=== PATIENT | male | born 1945 | race American Indian/Alaskan Native ===

== ENCOUNTER 2018-08-23 10:49 | Emergency (ER) | payer MEDICARE ==
[2018-08-23 11:08] VITALS: BP 163/89
--- NOTE | 2018-08-23 12:48 | Emergency Department Report ---
HPI - General Chief Complaint: Pain General Time Seen by Provider: 08/23/18 12:19 - HPI HPI: Room 25 The patient is a 73-year-old male presenting with a chief complaint of bilateral pain and swelling. Patient states for one week she's noticed induration and tenderness of both nipples as well as enlargement. Patient denies any history of fever, weight loss or headaches. Patient denies nausea/vomiting, shortness of breath or chest pain. The patient has a history of cirrhosis Location: [See above] Duration: One week Quality: Soreness Severity: Moderate Modifying factors: [see above] Context: [see above] Mode of transportation: [not driving] ED Past Medical Hx - Past Medical History Hx Hypertension: Yes Hx Diabetes: Yes Hx Liver Disease: Yes Additional medical history: HepC, enlarged thyroid gland, glaucoma - Surgical History Additional Surgical History: Urethra stricture - Family History Family history: no significant - Social History Smoking Status: Former Smoker (none 40 years) Substance Use Type: None (denies illicit drug use) - Medications Home Medications: Home Medications Medication Instructions Recorded Confirmed Last Taken Type traMADol [Ultram] 50 mg PO Q6HR PRN #14 tablet 08/23/18 Unknown Rx ED Review of Systems ROS: Stated complaint: HIP PAIN/SWOLLEN BREAST Other details as noted in HPI Constitutional: denies: fever Eyes: denies: eye pain ENT: denies: throat pain Respiratory: no symptoms reported Cardiovascular: denies: chest pain Endocrine: other (gynecomastia) Gastrointestinal: denies: abdominal pain Genitourinary: denies: dysuria Musculoskeletal: denies: back pain Skin: denies: lesions Neurological: denies: headache Physical Exam - Physical Exam Vital Signs: Vital Signs 08/23/18 11:01 Temperature 97.6 F Pulse Rate 58 L Respiratory 18 Rate Blood Pressure 163/89 O2 Sat by Pulse 98 Oximetry Physical Exam: GENERAL: The patient is well-developed well-nourished male lying on stretcher not appearing to be in acute distress. [] HEENT: Normocephalic. Atraumatic. Extraocular motions are intact. Patient has moist mucous membranes. NECK: Supple. Trachea midline CHEST/LUNGS: No rubbery mass palpated surrounding nipples bilaterally. There is no surrounding erythema or discharge. Clear to auscultation. There is no respiratory distress noted. HEART/CARDIOVASCULAR: Regular. There is no tachycardia. There is no gallop rub or murmur. ABDOMEN: Abdomen is soft, nontender. Patient has normal bowel sounds. There is no abdominal distention. SKIN: There is no rash. There is no diaphoresis. NEURO: The patient is awake, alert, and oriented. The patient is cooperative. The patient has normal speech MUSCULOSKELETAL: There is no evidence of acute injury. ED Course Vital Signs 08/23/18 11:01 Temperature 97.6 F Pulse Rate 58 L Respiratory 18 Rate Blood Pressure 163/89 O2 Sat by Pulse 98 Oximetry ED Medical Decision Making - Lab Data Result diagrams: 08/23/18 12:39 08/23/18 12:39 Laboratory Tests 08/23/18 08/23/18 08/23/18 12:39 12:39 12:39 WBC 3.9 L RBC 4.08 Hgb 13.8 Hct 41.5 MCV 102 H MCH 34 H MCHC 33 RDW 13.4 Plt Count 128 L Eos % (Auto) Kennel Worker Sodium 141 Potassium 4.3 Chloride 104.7 Carbon Dioxide 26 Anion Gap 15 BUN 15 Creatinine 1.1 Estimated GFR > 60 BUN/Creatinine Ratio 14 Glucose 157 H Calcium 9.2 Total Bilirubin 0.60 AST 21 ALT 12 Alkaline Phosphatase 80 Total Protein 7.4 Albumin 3.9 Albumin/Globulin Ratio 1.1 TSH 0.898 Free T4 1.16 HCG, Quant < 2 H - Differential Diagnosis gynecomastia, breast cancer Critical care attestation.: If time is entered above; I have spent that time in minutes in the direct care of this critically ill patient, excluding procedure time. ED Disposition Clinical Impression: Gynecomastia Disposition: - TO HOME OR SELFCARE Is pt being admited?: No Does the pt Need Aspirin: No Condition: Stable Additional Instructions: Return to the emergency department immediately should you develop worsening symptoms, fever, inability to tolerate food or liquid or any other concerns. Prescriptions: traMADol [Ultram] 50 mg PO Q6HR PRN #14 tablet PRN Reason: Pain Referrals: GABBY GANT JR, MD [Primary Care Provider] - 3-5 Days QUITA AQUINO MD [Staff Physician] - 3-5 Days (Dr. Aquino is a hangar attendant. Please follow up with him for further evaluation of your cirrhosis) Time of Disposition: 13:42
[2018-08-23 13:10] LABS: Hematocrit 41.5 % (35.5-45.6); Hemoglobin 13.8 gm/dl (11.8-15.2); Mean Corpuscular HGB Conc 33 % (32-34); Mean Corpuscular Hemoglobin 34 pg (28-32); Mean Corpuscular Volume 102 fl (84-94); Platelet Count 128 K/mm3 (140-440); Red Blood Count 4.08 M/mm3 (3.65-5.03); Red Cell Distribution Width 13.4 % (13.2-15.2)
[2018-08-23 13:13] LABS: Alanine Aminotransferase 12 units/L (7-56); Albumin 3.9 g/dL (3.9-5); BUN/Creatinine Ratio 14; Blood Urea Nitrogen 15 mg/dL (9-20); Calcium 9.2 mg/dL (8.4-10.2); Hemolysis Index 15
[2018-08-23 13:25] LABS: Free T4 (Free Thyroxine) 1.16 ng/dL (0.76-1.46); HCG,Quantitative < 2 mIU/mL (0-1)
[2018-08-23 13:56] LABS: Basophils % (Manual) 0 % (0.0-1.8); Total Cells Counted 100
[2018-08-23 13:57] LABS: Anisocytosis 1+; Giant Platelets Rare; Large Platelets Few; Macrocytosis 1+; Ovalocytes 1+; Platelet Estimate Appears Decreased
== END 2018-08-23 14:18 | disposition home or self-care (01) ==
LOC: ED 10:49
DX: N62 Hypertrophy of breast (principal); I10 Essential (primary) hypertension; E11.9 Type 2 diabetes mellitus without complications; Z86.19 Personal history of other infectious and parasitic diseases; Z87.891 Personal history of nicotine dependence
CPT/HCPCS: 36415; 80053; 82670; 84439; 84443; 84702; 85007; 85025; 99283

== ENCOUNTER 2018-11-23 07:13 | Day surgery (SDC) | payer MEDICARE, OTHER ==
[2018-11-23] MEDS ORDERED: NACL 0.9% 1000 ML 1,000 ML IV SCH (08:00)
[2018-11-23] MEDS ORDERED: DIPRIVAN 10 MG/ML IV ONE (09:46)
[2018-11-23] MEDS ORDERED: VERSED ONE (09:46)
[2018-11-23] MEDS ORDERED: WATER FOR IRRIG STERILE IR ONE (09:47)
--- NOTE | 2018-11-23 09:49 | Anesthesia Day of Surgery ---
Anesthesia Day of Surgery - Day of Surgery Patient Examined: Yes Patient H&P Reviewed: Yes Patient is NPO: Yes Beta Blockers: No
--- NOTE | 2018-11-23 09:52 | Anesthesia Consultation ---
Anesthesia Consult and Med Hx Date of service: 11/23/18 - Airway Anesthetic Teeth Evaluation: Poor ROM Head & Neck: Adequate Mental/Hyoid Distance: Adequate Mallampati Class: Class II Intubation Access Assessment: Probably Good - Pulmonary Exam CTA: Yes - Cardiac Exam Cardiac Exam: No Murmur - Pre-Operative Health Status ASA Pre-Surgery Classification: ASA3 Proposed Anesthetic Plan: MAC - Pulmonary Hx Smoking: No Hx Asthma: No Hx Respiratory Symptoms: No - Cardiovascular System Hx Hypertension: Yes - Endocrine Hx Cirrhosis: Yes Hx Liver Disease: Yes (hept c) Hx Insulin Dependent Diabetes: Yes - Hematic Hx Anemia: Yes
--- NOTE | 2018-11-23 10:39 | Procedure Note ---
Date of procedure: 11/23/18 Pre-op diagnosis: H/O Esophageal Varices/ Colon Polyp Screening Post-op diagnosis: other (Moderate, Desirae Esophagitis/ Grade 1 to 2 Esophageal Varices/ Submucosal Gastric Lesion/ Gastritis/ Normal, Colon Mucosa/ Minor,Internal Hemorrhoid) Procedure: EGD with Biopsy/ Colonoscopy Anesthesia: AMARA Surgeon: BURTON HERNANDEZ Estimated blood loss: minimal Pathology: list Specimen disposition: to lab Condition: stable Disposition: same day (Treat with Fluconazole and resume home medication. Follow up in 1 to 2 weeks ([phone]).)
--- NOTE | 2018-11-23 11:08 | Operative Report ---
ESOPHAGOGASTRODUODENOSCOPY WITH BIOPSY INDICATIONS FOR PROCEDURE: This is a 73-year-old -[place] gentleman with an underlying history of chronic hepatitis C with cirrhosis. He has been treated with Harvoni and is noted to be treated for hepatitis C that requires periodic ultrasound of the liver to check for any hepatoma. He has a history of esophageal varices. EGD was done to make sure that the esophageal varices have not worsened. DESCRIPTION OF PROCEDURE: Procedure was done after getting informed consent with MAC anesthesia. Instrument was passed through the hypopharynx into the esophagus, which showed moderate Desirae esophagitis. Biopsy was done from the esophagus to check for that. The patient also had grade 1-2 esophageal varices, which were noted. Photodocumentation was also noted. Within the stomach, there was a gastric lesion, possibly submucosal lesion noted. Biopsy was done. The patient may require an US or a CT scan of the abdomen and pelvis for further assessment as well as associated gastritis and patent pylorus. There is minimal bleeding from the biopsy sites. No complications associated with the procedure. ASSESSMENT: Moderate Desirae esophagitis, grade 1-2 esophageal varices, gastric lesion, possibly submucosal gastritis. PLAN: Plan is to treat the patient with fluconazole, have the patient follow up in the office in 1-2 weeks' time. The patient may require a CT scan of the abdomen and pelvis or an US to be done as an outpatient for further assessment of the gastric submucosal lesion. There were no complications associated with the procedure. No bleeding associated with the procedure. A colonoscopy will be done as part of colon polyp screening and the patient will be asked to follow up in office in 1-2 weeks' time. RN, Selma Bailey was in the room throughout the entirety of the procedure. JOB# [id number] DAVE/NAVID
[2018-11-23 11:09] VITALS: BP 131/75
--- NOTE | 2018-11-23 11:20 | Operative Report ---
PROCEDURE: Colonoscopy. INDICATIONS: A 73-year-old -[place] gentleman with an underlying history of chronic hepatitis C that has been treated with Harvoni. He does have cirrhosis associated with chronic hepatitis C for which he has ultrasounds of the liver done every 6 months to check for possible hepatoma. Colonoscopy was done as part of colon polyp screening. DESCRIPTION OF PROCEDURE: Procedure was done after informed consent with MAC anesthesia. Initial rectal exam was unremarkable. Instrument was passed through the rectum onto the cecum, which was identified by ileocecal valve and appendiceal orifice. Visualization was fair to good. The scope was retroverted in the cecum. There was no polyps noted in the cecum, ascending colon as the scope was withdrawn and also in the transverse colon, descending colon, sigmoid showed normal mucosa. Rectum showed some minor internal hemorrhoids on the retroverted view. There were no biopsies associated with this procedure. No bleeding associated with this procedure. No complications associated with the procedure. ASSESSMENT: Colon polyp screening. No colon polyps noted. Minor internal hemorrhoid. The patient will be asked to continue with low-dose beta ricci and will be placed on fluconazole because of the upper endoscopic findings of moderate Desirae esophagitis and asked to follow up in the office in 1-2 weeks' time. RNSelma was in the room throughout the entirety of the procedure. JOB# [id number] DAVE/NAVID
== END 2018-11-23 07:14 | disposition home or self-care (01) ==
LOC: GIO 07:13
DX: Z12.11 Encounter for screening for malignant neoplasm of colon (principal); K64.8 Other hemorrhoids; B37.81 Candidal esophagitis; K20.9 Esophagitis, unspecified; D13.0 Benign neoplasm of esophagus; K74.69 Other cirrhosis of liver; B18.2 Chronic viral hepatitis C; I85.00 Esophageal varices without bleeding; E11.39 Type 2 diabetes mellitus with other diabetic ophthalmic complication; H40.9 Unspecified glaucoma; Z79.899 Other long term (current) drug therapy; Z87.891 Personal history of nicotine dependence; Z79.01 Long term (current) use of anticoagulants; Z98.42 Cataract extraction status, left eye; Z98.41 Cataract extraction status, right eye; Z98.890 Other specified postprocedural states; Z86.2 Personal history of diseases of the blood and blood-forming organs and certain disorders involving the immune mechanism
CPT/HCPCS: 43239; 45378; 82962; 88305; 88312; 88342; J2250; J2704; J7030

== ENCOUNTER 2018-12-03 08:45 | Outpatient (CLI) | payer OTHER ==
[2018-12-03 09:20] LABS: Blood Urea Nitrogen 15 mg/dL (9-20)
--- NOTE | 2018-12-03 23:36 | Cat Scan Report ---
PROCEDURE: CT ABDOMEN PELVIS W CON TECHNIQUE: Computerized axial tomography of the abdomen and pelvis was performed after the IV inject ion of iodinated nonionic contrast. CT DOSE LENGTH PRODUCT: 1862.2 mGycm HISTORY: GASTRIC LESION COMPARISONS: None . FINDINGS: Liver demonstrates mild degree of nodularity to the outlines. Spleen, pancreas and adrenal glands are within normal limits. Well-defined simple cysts are noted in bilateral kidneys. Otherwise bilateral kidneys demonstrate normal enhancement without hydronephrosis. Aorta is of normal caliber. Urinary bl adder is partially distended. A penile prosthesis is noted with its reservoir in the pelvis anterior to the bladder. There is no free fluid or free air. Gallbladder is unremarkable. Small bowel loops ar e within normal limits. Appendix is normal. Stomach Demonstrates a soft tissue density lesion in the fundus measuring 3.1 x 3.4 cm. Venous varicosities are identified in the umbilicus and at the gastroe sophageal junction with dilated paraumbilical veins. IMPRESSION: Gastric lesion in the fundus is suspicious for a neoplasm such as leiomyoma. Endoscopic e valuation is recommended. Nodular hepatic outlines, umbilical varicosities with dilated paraumbilical veins and varicosities at the gastroesophageal junction most likely represent cirrhosis. This document is electronically signed by Eloy Kaur MD., December 03 2018 11:34:49 PM ET
== END 2018-12-03 08:46 | disposition home or self-care (01) ==
LOC: CT 08:45
DX: K31.89 Other diseases of stomach and duodenum (principal); I10 Essential (primary) hypertension; E11.9 Type 2 diabetes mellitus without complications
CPT/HCPCS: 36415; 74177; 82565; 84520; Q9967

== ENCOUNTER 2021-02-25 09:13 | Day surgery (SDC) | payer MEDICARE ==
[2021-02-25 10:57] LABS: Hematocrit 37.8 % (35.5-45.6); Hemoglobin 12.8 gm/dl (11.8-15.2); Mean Corpuscular HGB Conc 34 % (32-34); Mean Corpuscular Volume 103 fl (84-94); Platelet Count 106 K/mm3 (140-440); Red Blood Count 3.69 M/mm3 (3.65-5.03); Red Cell Distribution Width 13.9 % (13.2-15.2)
[2021-02-25 12:01] LABS: INR 1.14 (0.87-1.13)
[2021-02-25 12:04] LABS: Partial Thromboplastin Time 33.2 Sec. (24.2-36.6)
--- NOTE | 2021-02-25 13:16 | Short Stay Summary ---
Short Stay Documentation Date of service: 02/25/21 - History Principal diagnosis: normal pressure hydrocephalus - Allergies and Medications Current Medications: Allergies No Known Allergies Allergy (Verified 11/22/18 15:32) Home Medications Medication Instructions Recorded Confirmed Last Taken Type Amlodipine Besylate 10 mg PO DAILY 11/22/18 02/25/21 02/25/21 History 0700 Furosemide 20 mg PO DAILY 11/23/18 02/25/21 02/10/21 History 1 tab Gabapentin 300 mg PO DAILY 11/23/18 02/25/21 02/23/21 History 0700 Levemir Flextouch 15 units SUB-Q PRN PRN 11/23/18 02/25/21 02/24/21 History 15 units Losartan/Hydrochlorothiazide 12.5 - 100 mg PO DAILY 11/23/18 11/23/18 02/25/21 History 0700 Nadolol 20 mg PO DAILY 11/23/18 02/25/21 02/24/21 History 1 tab NovoLOG Flexpen 15 units SUB-Q PRN PRN 11/23/18 02/25/21 02/24/21 History 10 units Omeprazole 20 mg PO DAILY 11/23/18 02/25/21 02/25/21 History 1 tab - Physical exam General appearance: no acute distress Neurological: Normal speech, Normal tone, Sensation intact - Brief post op/procedure progress note Date of procedure: 02/25/21 Pre-op diagnosis: normal pressure hydrocephalus Post-op diagnosis: same Procedure: flouro guided lumbar puncture Anesthesia: local Findings: none Surgeon: MYNOR RIVERA Estimated blood loss: none Pathology: list (4 csf tubes) Specimen disposition: to lab Condition: stable - Hospital course Hospital course: uneventful - Disposition Condition at discharge: Good Disposition: DC-01 TO HOME OR SELFCARE Short Stay Discharge Plan Follow up with: JESSICA العلي MD [Primary Care Provider] - 7 Days
[2021-02-25 14:01] LABS: Glucose,CSF 81 mg/dL
--- NOTE | 2021-02-25 14:10 | Fluoroscopy Report ---
LUMBAR PUNCTURE INDICATION : Normal pressure hydrocephalus, therapeutic drainage PROCEDURE: The risks (including but not limited to bleeding, infection, and spinal headache) and cherelle efits were explained to the patient and and informed consent was obtained. A time out procedure was performed. The procedure site was prepped and draped in the usual sterile fashion and lidocaine was used for local anesthesia. Under fluoroscopic guidance, a 22-gauge spinal needle was advanced into the L3-4 interlaminar space. The opening pressure was 130 mm H2O which was calculated by adding the length of the needle (9 cm) to the height of the CSF column. 4 separate collection tubes were used to obtained 4 cc each of CSF. A total of 30 cc of CSF was drained per the ordering physician's request. Samples were sent to the lab per the ordering physician specifications for further evaluation. The patient tolerated the procedure well with no complications. IMPRESSION: Successful lumbar puncture as outlined above. Opening pressure was 130 mm H20. Fluoroscopic time: 1.1 minutes Number of fluoroscopic images: 1 Signer Name: Stefan Houston Jr, MD Signed: 02/25/2021 2:05 PM Workstation Name: [id number]
[2021-02-25 14:25] VITALS: BP 145/74
[2021-02-25 15:02] LABS: Appearance,CSF Clear; Red Blood Cell,CSF 3 /mm3 (0-0); White Blood Cell,CSF 4 /mm3 (1-10)
[2021-02-25 15:39] LABS: Total Cells Counted 53 /mm3
== END 2021-02-25 15:00 | disposition home or self-care (01) ==
LOC: CATHLABREC 09:13 → CATH 09:13 → EDSTATUS 10:30 → CATHLABREC 15:00
PROVIDERS: ATTEND Psychiatry & Neurology Neurology
DX: G91.2 (Idiopathic) normal pressure hydrocephalus (principal); I10 Essential (primary) hypertension; E11.9 Type 2 diabetes mellitus without complications; M19.90 Unspecified osteoarthritis, unspecified site; M81.0 Age-related osteoporosis without current pathological fracture; Z79.899 Other long term (current) drug therapy; Z98.890 Other specified postprocedural states
CPT/HCPCS: 36415; 62270; 62328; 82947; 84160; 85027; 85610; 85730; 86592; 89051

== ENCOUNTER 2022-03-07 08:47 | Outpatient (CLI) | payer MEDICARE ==
--- NOTE | 2022-03-07 11:02 | Mammography Report ---
DEXA BONE DENSITY SCAN INDICATION / CLINICAL INFORMATION: OSTEOPOROSIS. 76 years Male COMPARISON: None available. LUMBAR SPINE (L1-L4): - Bone mineral density (BMD) = 0.864 g/cm2. - T-score = -2.1 Change (%) since most recent prior (if available): None available. FEMORAL NECKS: - Left neck Bone mineral density (BMD) = 0.521 g/cm2. - T-score = -3.0 Change (%) since most recent prior (if available): None available. IMPRESSION: 1. WHO Classification: Osteoporosis. Fracture Risk: High. 2. 10-Year Fracture Risk (FRAX) = Major Osteoporotic Not reported.% / Hip: Not reported.%. BMD Reporting Guidelines (ISCD, 2015) BMD Reporting in Postmenopausal Women and in Men Age 50 and Older * T-scores are preferred. * The WHO densitometric classification is applicable. BMD Reporting in Females Prior to Menopause and in Males Younger Than Age 50 * Z-scores, not T-scores, are preferred. This is particularly important in children. * A Z-score of -2.0 or lower is defined as below the expected range for age, and a Z-score above -2. 0 is within the expected range for age. * Osteoporosis cannot be diagnosed in men under age 50 on the basis of BMD alone. * The WHO diagnostic criteria may be applied to women in the menopausal transition. http://www.iscd.org/official-positions/8131-gdzx-winypgyz-positions-adult/ Signer Name: Chino Mallory MD Signed: 03/07/2022 10:57 AM Workstation Name: [id number]
== END 2022-03-07 08:48 | disposition home or self-care (01) ==
LOC: MAMMO 08:47
PROVIDERS: ATTEND Internal Medicine Gastroenterology
DX: M81.0 Age-related osteoporosis without current pathological fracture (principal); K74.60 Unspecified cirrhosis of liver
CPT/HCPCS: 77080